=== PATIENT | male | born 2000 | race Caucasian/White ===

== ENCOUNTER 2021-09-20 16:39 | Emergency (ER) | payer SELFPAY ==
[~2021-09-20] VITALS: Ht 172.7 cm; Wt 76.9 kg
[2021-09-20 16:40] VITALS: BP 131/83
== END 2021-09-20 18:00 | disposition left against medical advice (07) ==
LOC: M ED 16:39
DX: Z53.21 Procedure and treatment not carried out due to patient leaving prior to being seen by health care provider (principal)

== ENCOUNTER → 2022-05-10 | Outpatient (REF) | LOC: M PLAIMG 09:54 | PROVIDERS: ATTEND Internal Medicine | DX: Z11.52 Encounter for screening for COVID-19 (principal) ==

== ENCOUNTER 2022-07-04 19:48 | Emergency (ER) | payer BC, OTHER, SELFPAY ==
[~2022-07-04] VITALS: Ht 172.7 cm; Wt 84.0 kg
[2022-07-04 19:49] VITALS: BP 133/84
[2022-07-04] MEDS ORDERED: DERMABOND TOPICAL SKIN ADHESIVE TOP ONE (20:15)
== END 2022-07-04 20:51 | disposition home or self-care (01) ==
LOC: M ED 19:48
DX: S61.211A Laceration without foreign body of left index finger without damage to nail, initial encounter (principal); W26.0XXA Contact with knife, initial encounter; Y92.89 Other specified places as the place of occurrence of the external cause; Y93.89 Activity, other specified; Y99.8 Other external cause status

== ENCOUNTER 2022-07-13 00:02 | Emergency (ER) | payer OTHER ==
[~2022-07-13] VITALS: Ht 175.3 cm; Wt 85.9 kg
[2022-07-13 00:03] VITALS: BP 133/83
[2022-07-13] MEDS ORDERED: BACT800T5 PO ×2 (01:53→02:00)
== END 2022-07-13 02:07 | disposition home or self-care (01) ==
LOC: M ED 00:02
DX: S80.912A Unspecified superficial injury of left knee, initial encounter (principal); X58.XXXA Exposure to other specified factors, initial encounter; Y92.89 Other specified places as the place of occurrence of the external cause; Y93.89 Activity, other specified; Y99.8 Other external cause status; N61.1 Abscess of the breast and nipple; L02.412 Cutaneous abscess of left axilla; M54.9 Dorsalgia, unspecified; F17.200 Nicotine dependence, unspecified, uncomplicated; Z91.040 Latex allergy status